=== PATIENT | female | born 2005 | race Caucasian/White ===

== ENCOUNTER 2023-01-06 08:14 | Emergency (ER) | payer OTHER ==
[~2023-01-06] VITALS: Ht 165 cm; Wt 49.8 kg
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
[2023-01-06] MEDS ORDERED: KETOROLAC INJ 15 MG/ML VIAL IVP ONE (09:00)
[2023-01-06 09:02] LABS: BASOPHILS % (AUTO) 0 % (0-10); EOSINOPHILS # (AUTO) 0.1 10^3/uL (0.0-0.3); EOSINOPHILS % (AUTO) 1 % (0-10); HEMATOCRIT 37 % (35-52); HEMOGLOBIN 12.4 g/dL (11.5-16.0); LYMPHOCYTES # (AUTO) 2.8 10^3/uL (1.0-4.0); LYMPHOCYTES % (AUTO) 31 % (12-44); MEAN CORPUSCULAR HEMOGLOBIN 29 pg (25-34); MEAN CORPUSCULAR HGB CONC 33 g/dL (32-36); MEAN CORPUSCULAR VOLUME 88 fL (80-99); MEAN PLATELET VOLUME 10.6 fL (9.0-12.2); MONOCYTES # (AUTO) 0.5 10^3/uL (0.0-1.0); MONOCYTES % (AUTO) 6 % (0-12); NEUTROPHILS # (AUTO) 5.4 10^3/uL (1.8-7.8); NEUTROPHILS % (AUTO) 60 % (42-75); PLATELET COUNT 259 10^3/uL (130-400); WHITE BLOOD COUNT 9.1 10^3/uL (4.3-11.0)
[2023-01-06 09:05] LABS: ALBUMIN 3.8 GM/DL (3.2-4.5); POTASSIUM 3.9 MMOL/L (3.6-5.0)
[2023-01-06 09:06] LABS: CALCIUM 8.5 MG/DL (8.5-10.1)
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
[2023-01-06 09:08] LABS: TOTAL PROTEIN 6.3 GM/DL (6.4-8.2)
[2023-01-06 09:09] LABS: BILIRUBIN,TOTAL 0.8 MG/DL (0.1-1.0)
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
[2023-01-06 09:11] LABS: CREATININE SERUM 0.77 MG/DL (0.60-1.30)
[2023-01-06] MEDS ORDERED: HOLD METFORMIN - RECEIVED CONTRAST 20 ML VIAL IV SCH (09:45)
[2023-01-06] MEDS ORDERED: NS 100 ML (IVPB) BAG IV ONE (09:45)
[2023-01-06] MEDS ORDERED: ONDANSETRON INJECTION 4 MG/2 ML (SDV) IVP ONE (09:45)
[2023-01-06] MEDS ORDERED: IOHEXOL 350 MG/ML 100 ML (OMNIPAQUE 350) VIAL IV ONE (09:45)
[2023-01-06] MEDS ORDERED: fentaNYL INJECTION 100 MCG/2 ML VIAL IVP ONE ×3 (09:45→13:45)
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
[2023-01-06 11:29] LABS: CLARITY,URINE CLEAR; COLOR,URINE YELLOW; GLUCOSE, URINE (UA) NEGATIVE (NEGATIVE); PH,URINE 5.5 (5-9); PROTEIN,URINE NEGATIVE (NEGATIVE)
[2023-01-06 11:30] LABS: KETONES,URINE NEGATIVE (NEGATIVE)
[2023-01-06 11:38] LABS: BILIRUBIN,URINE NEGATIVE (NEGATIVE); LEUKOCYTE ESTERASE ,URINE NEGATIVE (NEGATIVE); NITRITE,URINE NEGATIVE (NEGATIVE); WBC,URINE RARE /HPF
[2023-01-06 11:39] LABS: BACTERIA,URINE FEW /HPF
[2023-01-06 11:53] VITALS: BP 125/83
== END 2023-01-06 13:47 | disposition short-term general hospital (02) ==
LOC: ER 08:15
DX: S32.82XA Multiple fractures of pelvis without disruption of pelvic ring, initial encounter for closed fracture (principal); V43.52XA Car driver injured in collision with other type car in traffic accident, initial encounter; Y92.410 Unspecified street and highway as the place of occurrence of the external cause
CPT/HCPCS: 36415; 71045; 71260; 72131; 72170; 74177; 80053; 81000; 84703; 85025; 86850; 86900; 86901